=== PATIENT | male | born 1995 | race Caucasian/White ===

== ENCOUNTER 2020-11-13 02:45 | Emergency (ER) | payer SELFPAY ==
[2020-11-13] MEDS ORDERED: Sulfameth/Trimethoprim DS 800-160mg TAB ONE (03:19)
== END 2020-11-13 03:26 | disposition home or self-care (01) ==
LOC: BURERS 02:45
DX: H65.192 Other acute nonsuppurative otitis media, left ear (principal); R05 Cough
CPT/HCPCS: 99283

== ENCOUNTER 2020-11-24 20:35 | Emergency (ER) | payer SELFPAY ==
[2020-11-25 17:46] LABS: SARS-CoV-2 PCR by NAA Not Detected (NotDetected)
== END 2020-11-24 21:35 | disposition home or self-care (01) ==
LOC: BURERS 20:35
DX: J02.9 Acute pharyngitis, unspecified (principal); R51.9 Headache, unspecified; Z20.822 Contact with and (suspected) exposure to COVID-19; F17.210 Nicotine dependence, cigarettes, uncomplicated
CPT/HCPCS: 99284; U0003; U0005